=== PATIENT | male | born 1975 | race Two or more races ===

== ENCOUNTER 2024-08-04 12:47 | Outpatient (AMB) | payer OTHER, SELFPAY ==
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
[2024-08-04 13:00] VITALS: BMI 38.6
--- OUTSIDE RECORDS SUMMARY | 2024-08-04 14:23 | XMS_ITS ---
Author Name [facility] Organization Unknown History of Medication Use Medication Directions Dispensed Refills Start Date End Date Stat albuterol sulfate concentrate 2.5 mg/0.5 mL solution for nebulization 1 mL as needed by inhalation route. active Breo Ellipta 200 mcg-25 mcg/dose powder for inhalation Inhale 1 inhalation every day by inhalation route. 06/05/2024 completed albuterol sulfate HFA 90 mcg/actuation aerosol inhaler PLEASE SEE ATTACHED FOR DETAILED DIRECTIONS active oxycodone 5 mg tablet TOME BERNADINE TABLETA CADA CUATRO A SEIS HORAS POR V A ORAL 06/05/2024 completed meloxicam 15 mg tablet 1 tablet every day by oral route. active fluticasone propionate 50 mcg/actuation nasal spray,suspension USE 1 SPRAY IN EACH NOSTRIL DOS VECES AL D A active albuterol sulfate 2.5 mg/3 mL (0.083 %) solution for nebulization INHALE THE CONTENTS OF ONE VIAL BY UPDRAFT EVERY 6 HOURS IF NEEDED FOR WHEEZE, SHORTNESS OF BREATH active pregabalin 150 mg capsule TAKE 1 CAPSULE BY MOUTH TWICE A DAY MAY FILL LESSER AMOUNT active acetaminophen 500 mg tablet TOME DOS TABLETAS POR V A ORAL CADA SEIS HORAS CUANDO SEA NECESARIO FOR MILD PAIN FOR 14 DAYS active ipratropium bromide 42 mcg (0.06 %) nasal spray USE 2 SPRAYS INTO EACH NOSTRIL 4 TIMES A DAY NEEDED FOR CONGESTION active ibuprofen 800 mg tablet active Ozempic 0.25 mg or 0.5 mg (2 mg/1.5 mL) subcutaneous pen injector active montelukast 10 mg tablet 1 tablet every day by oral route. active cetirizine 10 mg tablet TOME 1 TABLETA POR V A ORAL TODOS LOS D active Paxlovid 300 mg (150 mg x 2)-100 mg tablets in a dose pack TOME SHIVANI TABLETAS POR V A ORAL DOS VECES AL D A FOR 5 DAYS, WITH OR WITHOUT FOOD 06/05/2024 completed lamotrigine 25 mg tablet 3 tablets twice a day by oral route. active prednisone 20 mg tablet TOME 3 TABLETAS POR BOCA X3 D THEN 2 TABS X3 DAYS, THEN 1 TAB X3 DAYS, WITH FOOD OR MILK 06/05/2024 completed fluticasone propionate 220 mcg/actuation HFA aerosol inhaler INHALE 2 PUFF(S) TWICE A DAY. RINSE MOUTH AFTER USE. active Trelegy Ellipta 200 mcg-62.5 mcg-25 mcg powder for inhalation INHALE UN SOPLIDO A DIARIO AT THE SAME TIME EVERY DAY active Ozempic 0.25 mg or 0.5 mg (2 mg/3 mL) subcutaneous pen injector PLEASE SEE ATTACHED FOR DETAILED DIRECTIONS active Problems Problem Status Onset Date Problem Type Date of Resoluti on Source Rupture of tendon of biceps active 2024-02-14 ProblemAct ENS_AONECT Injury of tendon of biceps brachii active 2024-02-15 ProblemAct ENS_AONECT Encounters Encounter Type Encounter Reason Primary Diagnosis Location Date Ambulatory [facility] [place] 02/15/2024 Ambulatory [facility] [place] 02/14/2024 Ambulatory [facility] [place] 02/14/2024 Ambulatory [facility] [place] 02/14/2024 Ambulatory [facility] [place] 02/13/2024 Ambulatory [facility] [place] 02/11/2024 Ambulatory [facility] [place] 02/11/2024 Ambulatory [facility] [place] 02/11/2024
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
--- OUTSIDE RECORDS SUMMARY | 2024-08-04 14:23 | XMS_ITS | Clinical Summary ---
Author Organization [facility] Location Address [address] [place] [address] Phone Care Team Providers Care Global Compensation Director Name Role Phone Edita Mancilla [employer] JUDGE Primary Care Provider Social History Tobacco Use Types Packs/Day Years Used Date Smoking Tobacco: Never Assessed Sex and Gender Information Value Date Recorded Sex Assigned at Not on file Legal Sex Male 10:45 PM EST Gender Identity Not on file Sexual Orientation Not on file Plan of Treatment Health Maintenance Due Date Last Done Comments DTaP,Tdap,and Td Vaccines (1 - Tdap) 1996 Hepatitis B Vaccines (1 of 3 - 19+ 3-dose series) 1996 Cholesterol Screening (Lipid Panel) 04/09/2022 Colorectal Cancer Screening: Colonoscopy 04/09/2022 Depression Screening 04/09/2022 HIV Screening 04/09/2022 Hepatitis C Screening 04/09/2022 Social Influencers of Health Screening 04/09/2022 COVID-19 Vaccine ( - 2023-2 5 season) 2024 Influenza Vaccine (#1) 2024 HIB Vaccines Aged Out No longer eligi ble based on patient's age to complete this topic HPV Vaccines Aged Out No longer eligi ble based on patient's age to complete this topic Hepatitis A Vaccines Aged Out No long er eligible based on patient's age to complete this topic IPV Vaccines Aged Out No longer eligi ble based on patient's age to complete this topic MMR Vaccines Aged Out No longer eligi ble based on patient's age to complete this topic Meningococcal ACWY Vaccine Aged Out N o longer eligible based on patient's age to complete this topic Meningococcal B Vacine Aged Out No lo nger eligible based on patient's age to complete this topic Pneumococcal Vaccine: Pediat rics (0 to 5 Years) and At-Risk Patients (6 to 64 Years) Aged Out No longer eligible b ased on patient's age to complete this topic RSV Immunization Patients Un brennan 20 months Aged Out No longer eligible b ased on patient's age to complete this topic Varicella Vaccines Aged Out No longer eligible based on patient's age to complete this topic Care Teams Global Compensation Director Relationship Specialty Start Date End Date Edita Mancilla NP [address] [place] [phone] PCP - General Internal Medicine 04/16/18
--- OUTSIDE RECORDS SUMMARY | 2024-08-04 14:23 | XMS_ITS | Patient Health Record ---
Author Organization [facility] Address [address] [place] [address] Care Team Providers Care Flexible Babysitter Name Role Phone Massiel, Gonzalo Primary Care Provider [phone] Reason For Referral No Information Medications Medication SIG (Take, Route, Frequency, Duration) Notes Start Date End Date Status BUSPIRONE HCL 15 MG TABLET 0 2 bid for 0 *please review for potential update for e-prescription and drug interaction check* 10/27/2014 Active CPAP 0 for 0 *please review f or potential update for e-prescription and drug interaction check* 10/27/2014 Active DULERA 200 MCG/5 MCG INHALER 200-5 MCG/ACTUATION 0 2 puffs bid for 0 *please review for potential update for e-prescription and drug interaction check* 10/27/2014 Active MONTELUKAST SOD 10 MG TABLET 0 1 qhs for 0 *please review for potential update for e-prescription and drug interaction check* 10/27/2014 Active Cyclobenzaprine HCl 10 MG 0 Oral 1 bid for 0 10/27/2014 Active Ibuprofen 200 mg 0 Oral 1 tab prn, uses 2/weeks for 0 10/27/2014 Active Lyrica 75 MG 0 Oral 1 caps bid for pain for 30 10/13/2014 Active ALBUTEROL SUL 2.5 MG/3 ML SOLN /3 ML (0.083 %) 0 Per nebulizer 3/week for 0 *please review for potential update for e-prescription and drug interaction check* 10/27/2014 Active NASACORT ALLERGY 24HR SPRAY 55 MCG 0 2 puffs qhs for 0 *please review for potential update for e-prescription and drug interaction check* 10/27/2014 Active PROAIR HFA 90 MCG INHALER MCG/ACTUATION 0 uses 6 puffs/day for 0 *please review for potential update for e-prescription and drug interaction check* 10/27/2014 Active Plan Of Treatment No Information Insurance Providers Payer Name Payer Address Payer Phone Subscriber Number Group Number Insured Name Patient Relationship to Insured Coverage Start Date Coverage End Date [place] [address] [place] [address] [id number] Elmer Vences Self - patient is the insured
== END 2024-08-04 13:37 | disposition home or self-care (01) ==
LOC: HO.HNS 12:48
PROVIDERS: Referring Provider Physical Medicine & Rehabilitation; Visit Provider Physician Assistant
DX: M48.061 Spinal stenosis, lumbar region without neurogenic claudication (principal)
CPT/HCPCS: 99204

== ENCOUNTER → 2024-08-04 12:47 | Outpatient (BNVA) | payer OTHER, SELFPAY | PROVIDERS: Referring Provider Physical Medicine & Rehabilitation; Visit Provider Physician Assistant | DX: M48.061 Spinal stenosis, lumbar region without neurogenic claudication (principal) | CPT/HCPCS: 99202 ==

== ENCOUNTER 2024-08-15 14:32 | Outpatient (AMB) | payer OTHER, SELFPAY ==
--- OUTSIDE RECORDS SUMMARY | 2024-08-15 14:49 | XMS_ITS | Data Portability ---
Author Organization [facility] Handley [facility] [place] Address [address] [facility] [address] [place] [address] Assessment Encounter Date Assessment Date Assessment LastModified [...] , [facility] eccentri c loading [facility] [address] [facility], [place], [address], 08:40:19 XR, elbow, 3 or more view 2023 [facility], [address], [place], [address], 17:26:07 Medication Orders None recorded . Patient TargetsNo targets recorded. Patient Instructions Encounter Date Encounter Id Patient Instructions Last Modified By Organization Details Last Modified Time 02/14/2024 [id number] 3 views of the right elbow ordered [...] [email or web address] [facility] Mri Department [address] [place], [address], 02/18/2024 13:22:16 Result Notes None recorded. Problems Name Problem SNOMED Code Status Onset Date Resolution Date Notes Provider Name and Address Organization Details Recorded Time Rupture of tendon of biceps 692947774 Active 024 Kaye Ross MD [address] [facility],[place] [address], [place], [address] , [place] [facility], P 4 14:24:20 Injury of tendon of biceps brachii 961143600 Active 024 Kaye Ross MD [address] [facility] [address], [place], [address] , [place] [facility], P 4 10:06:24 Problem Notes None recorded. Procedures Surgical History Date Name Laterality Status Provider Name and Address Organization Details Recorded Time BICEPS TENDON REPAIR (SURG) completed Shanita Coronado [facility] [place] 02/22/2024 11:26:42 Imaging Results Imaging Date Name Status LastModified by Organiz ation Details LastModified Time 02/15/2024 MRI, elbow, w/o contrast completed [address] Mri Department [address] [place], [address], 02/18/2024 13:22:16 Procedure Notes None recorded. Medical [...] Time Tobacco Smoking Status Former Smoker Shannon Zhu null, [place] [facility] 03/06/2024 10:14:29 How Much Tobacco Do You Smoke? No [email or web address] Information not available 03/06/2024 Sex: Unknown Functional Status None recorded. Mental Status None recorded. Family History Nothing Reported. Medical History No medical history recorded. Past Encounters Encounter ID Performer Location Encounter Start Date Encounter Closed Date Diagnosis/Indication Diagnosis SNOMED-CT Code Diagnosis ICD10 Code Diagnosis Note [id number] BENNY [facility] [address] [address] 02/14/2024 13:51:33 02/14/2024 14:44:52 Pain in elbow 03899891 M25.521 Rupture of tendon of biceps 580025022 S46.211A [id number] MD BENNY Abdalla [facility] [address] [address] 03/06/2024 10:05:42 03/06/2024 10:35:09 Rupture of tendon of biceps 871878653 S46.211A [id number] MD BENNY Abdalla [facility] [address] [address] 04/17/2024 12:51:30 04/17/2024 13:25:23 Rupture of tendon of biceps 466780281 S46.211A [id number] MD BENNY Abdalla [facility] [address] [address] 06/05/2024 12:34:26 06/05/2024 13:06:51 Rupture of tendon of biceps 113729855 S46.211A Health Concerns Section Related Observation LastModified [...] (MEDICARE REPLACEMENT/ADV ANTAGE - HMO) Elmer Mauricio [id number] Elmer Mauricio 03/06/2024 1 [employer] - DOS ON OR AFTER 2022 - ONE CARE (MEDICARE REPLACEMENT/ADV ANTAGE - HMO) Elmer Mauricio [id number] Elmer Mauricio 04/17/2024 1 [employer] - DOS ON OR AFTER 2022 - ONE CARE (MEDICARE REPLACEMENT/ADV ANTAGE - HMO) Elmer Mauricio [id number] Elmer Mauricio 06/05/2024 1 [employer] - DOS ON OR AFTER 2022 - ONE CARE (MEDICARE REPLACEMENT/ADV ANTAGE - HMO) Elmer Mauricio [id number] Elmer Mauricoi Notes Date Note Type Note Provider Name and Address Organization Details Recorded Time 02/14/2024 text/html This is a 48-yea r-old nsxbp-rxbs-vglzhvyt male who presents with a right elbow injury which occurred on 02/09/2024 when he was lifting furniture and the right arm hyperextended under a heavy piece of furniture. He thought he felt a pop. He had pain and swelling at the antecubital fossa immediately after. He had decreased range of motion and pain with activity with the right hand. He went to [facility] for evaluation, x-rays of elbow and shoulder [...] asthma, fibromyalgia, and headaches. 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 He quit smoking cigarettes 12 years ago, does not currently use tobacco or nicotine, does not use illicit drugs, does not drink alcohol. Kaye Ross MD [address] [facility],[place] [address], [place], [address], [facility] - [facility], [facility] 02/15/2024 10:04:15 03/06/2024 text/html He presents [...] any pain medication. Kaye Ross MD [address] [address], [place], [address], [facility] - [facility] 03/06/2024 16:03:07 04/17/2024 text/html He presents [...] progress thus far. Kaye Ross MD [address] [facility] [address], [place], [address], [facility] - [facility], [facility] 04/17/2024 13:58:46 06/05/2024 text/html He presents [...] Happy with his progress. Kaye Ross MD [address] [place] [address], [address], [place] [facility] 06/05/2024 13:24:21
--- OUTSIDE RECORDS SUMMARY | 2024-08-15 14:49 | XMS_ITS | Clinical Summary ---
Author Organization [facility] Location Address [address] [place] [address] Phone Care Team Providers Care Tax Compliance Manager Name Role Phone Edita Mancilla MITER OPERATOR Primary Care Provider Social History Tobacco Use [...] Influencers of Health Screening 04/09/2022 COVID-19 Vaccine (2023-2 5 season) 2024 Influenza Vaccine (Season Ended) 2025 HIB Vaccines Aged Out No longer eligi [...] age to complete this topic Meningococcal B Vaccine Aged Out No l onger eligible based on patient's age to complete [...] age to complete this topic Care Teams Tax Compliance Manager Relationship Specialty Start Date End Date Edita Mancilla NP [address] [place] [phone] PCP - General Internal Medicine 04/16/18
--- OUTSIDE RECORDS SUMMARY | 2024-08-15 14:49 | XMS_ITS | Patient Health Record ---
Author Organization [facility] Address [address] [place] [address] Care Team Providers Care Commercial Pilot Name Role Phone Massiel, Gonzalo Primary Care Provider Reason For Referral No Information Medications Medication [...] End Date [place] [address] [place] [address] [id number] Elmer Vences Self - patient is the insured
--- NOTE | 2024-08-15 15:08 | A.OFFVIS_ITS ---
Intake Visit Reasons: discuss surgery Allergies COVID-19 (SARS-CoV-2) vaccine, mohsen Allergy (Severe, Verified 08/04/24 13:02) Unknown seafood Adverse Reaction (Severe, Verified 08/04/24 13:02) Unknown Assessment & Plan Assessment & Plan (1) Lumbar stenosis: Code(s): M48.061 - Spinal stenosis, lumbar region without neurogenic claudication Category: Medical Plan Mr Dayron Mauricio came in today for an office visit to follow up and discuss potential surgery. Dr. Drew and I reviewed his films after his last visit and he agreed that a unilateral approach from the left for bilateral decompression at L4-5 would be reasonable for him. He came back in to review his MRI and to discuss the surgery. We reviewed the procedure at length with him in his . I made it clear to him that the main goal of surgery would to be to help the claudicating leg pains that are radiating down his calves, and not for his back pain which is whole separate issue altogether. He understands this. His quality of life has been suffering significantly and he is at a point now where he does not really do much in the way of any activity at all because he has in so much discomfort. He is ready to go ahead with surgery. He is tentatively booked for 09/18/2024. Pt was given risk and benefits of surgery including but not limited to infection, hematoma , nerve injury,durotomy, weakness,bowel/bladder injury, persistent pain, as well as the option to continue with conservative treatment and patient wishes to proceed with surgery. Pt is aware they should stop their motrin/meloxicam 7 days prior to surgery. All questions were answered to the best of our ability. If there is anything about this patients medical history that we have overlooked or concerns you have about us proceeding with surgery we would appreciate any input you can offer. While he understands there is very low risk for any meaningful blood loss, he is a Religion and will not take any blood products whatsoever. I will talk to Dr. Drew and see if he thinks the cell Saver will be necessary, but typically blood loss and these procedures his less than 25 cc. Total amount of time spent in this visit was 20 minutes in discussion of symptoms, lumbar imaging results and subsequent plan of care Michi Drew MD,PhD [facility] Coding Level of Care Code Est Pt Level 3 (94795) Diagnoses Lumbar stenosis M48.061
== END 2024-08-15 15:22 | disposition home or self-care (01) ==
LOC: HO.HNS 14:33
PROVIDERS: Visit Provider Physician Assistant
DX: M48.061 Spinal stenosis, lumbar region without neurogenic claudication (principal)
CPT/HCPCS: 99213

== ENCOUNTER → 2024-08-15 14:32 | Outpatient (BNVA) | payer OTHER, SELFPAY | PROVIDERS: Visit Provider Physician Assistant | DX: M48.061 Spinal stenosis, lumbar region without neurogenic claudication (principal) | CPT/HCPCS: 99212 ==

== ENCOUNTER 2024-10-16 08:13 | Day surgery (SDC) | payer OTHER, SELFPAY ==
--- OUTSIDE RECORDS SUMMARY | 2024-08-19 08:15 | XMS_ITS | Clinical Summary ---
Author Organization [facility] Location Address [address] [place] [address] Phone Care Team Providers Care Production Line Worker Name Role Phone Edita Mancilla [employer]CRET[employer] FINISHING SUPERVISOR Primary Care Provider [phone] Social History Tobacco Use Types Packs/Day Years [...] age to complete this topic Care Teams Production Line Worker Relationship Specialty Start Date End Date Edita Mancilla NP [address] [place] [phone] PCP - General Internal Medicine 04/16/18
--- OUTSIDE RECORDS SUMMARY | 2024-08-19 08:15 | XMS_ITS | Patient Health Record ---
Author Organization [facility] Address [address] [place] [address] Care Team Providers Care Dust Mill Operator Name Role Phone Massiel, Gonzalo Primary Care Provider [phone] Reason For Referral No Information Medications Medication [...] End Date [place] [address] [place] [address] [id number] Elmer Vences Self - patient is the insured
--- OUTSIDE RECORDS SUMMARY | 2024-08-19 08:16 | XMS_ITS | Data Portability ---
Author Organization [facility] Handley [facility] [place] Address [address] [facility] [address] [place] [address] Assessment Encounter Date Assessment Date Assessment LastModified [...] , [facility] eccentri c loading [facility] [address] [facility], [place], [address], 08:40:19 XR, elbow, 3 or more view 2023 [facility], [address], [place], [address], 17:26:07 Medication Orders None recorded . Patient TargetsNo targets recorded. Patient Instructions Encounter Date Encounter Id Patient Instructions Last Modified By Organization Details Last Modified Time 02/14/2024 [id number] 3 views of the right elbow ordered [...] [email or web address] [facility] Mri Department [address] [place], [address], 02/18/2024 13:22:16 Result Notes None recorded. Problems Name Problem SNOMED Code Status Onset Date Resolution Date Notes Provider Name and Address Organization Details Recorded Time Rupture of tendon of biceps 378482846 Active 024 Kaye Ross MD [address] [facility],[place] [address], [place], [address] , [place] [facility], P 4 14:24:20 Injury of tendon of biceps brachii 138116096 Active 024 Kaye Ross MD [address] [facility] [address], [place], [address] , [place] [facility], P 4 10:06:24 Problem Notes None recorded. Procedures Surgical History Date Name Laterality Status Provider Name and Address Organization Details Recorded Time BICEPS TENDON REPAIR (SURG) completed Shanita Coronado [facility] [place], [facility] 02/22/2024 11:26:42 Imaging Results Imaging Date Name Status LastModified by Organiz ation Details LastModified Time 02/15/2024 MRI, elbow, w/o contrast completed [address] Mri Department [address] [place], [address], 02/18/2024 13:22:16 Procedure Notes None recorded. Medical [...] Shannon Zhu null, [place] [facility] 03/06/2024 10:14:29 How Much Tobacco Do You Smoke? No [email or web address] Information not available 03/06/2024 Sex: Unknown Functional Status None recorded. Mental Status None recorded. Family History Nothing Reported. Medical History No medical history recorded. Past Encounters Encounter ID Performer Location Encounter Start Date Encounter Closed Date Diagnosis/Indication Diagnosis SNOMED-CT Code Diagnosis ICD10 Code Diagnosis Note [id number] BENNY [facility] [address] [address] 02/14/2024 13:51:33 02/14/2024 14:44:52 Pain in elbow 81334540 M25.521 Rupture of tendon of biceps 458026323 S46.211A [id number] MD BENNY Abdalla [facility] [address] [address] 03/06/2024 10:05:42 03/06/2024 10:35:09 Rupture of tendon of biceps 058755964 S46.211A [id number] MD BENNY Abdalla [facility] [address] [address] 04/17/2024 12:51:30 04/17/2024 13:25:23 Rupture of tendon of biceps 223825616 S46.211A [id number] MD BENNY Abdalla [facility] [address] [address] 06/05/2024 12:34:26 06/05/2024 13:06:51 Rupture of tendon of biceps 781173917 S46.211A Health Concerns Section Related Observation LastModified [...] (MEDICARE REPLACEMENT/ADV ANTAGE - HMO) Elmer Mauricio [id number] Elmer Mauricio 03/06/2024 1 [employer] - DOS ON OR AFTER 2022 - ONE CARE (MEDICARE REPLACEMENT/ADV ANTAGE - HMO) Elmer Mauricio [id number] Elmer Mauricio 04/17/2024 1 [employer] - DOS ON OR AFTER 2022 - ONE CARE (MEDICARE REPLACEMENT/ADV ANTAGE - HMO) Elmer Mauricio [id number] Elmer Mauricio 06/05/2024 1 [employer] - DOS ON OR AFTER 2022 - ONE CARE (MEDICARE REPLACEMENT/ADV ANTAGE - HMO) Elmer Mauricio [id number] Elmer Mauricio Notes Date Note Type Note Provider Name and Address Organization Details Recorded Time 02/14/2024 text/html This is a 48-yea r-old ojldh-vdbl-ilvyugvj male who presents with a right elbow injury which occurred on 02/09/2024 when he was lifting furniture and the right arm hyperextended under a heavy piece of furniture. He thought he felt a pop. He had pain and swelling at the antecubital fossa immediately after. He had decreased range of motion and pain with activity with the right hand. He went to [facility] for evaluation, x-rays of elbow and shoulder [...] asthma, fibromyalgia, and headaches. 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 He quit smoking cigarettes 12 years ago, does not currently use tobacco or nicotine, does not use illicit drugs, does not drink alcohol. Kaye Ross MD [address] [facility],[place] [address], [place], [address], [facility] - [facility] [place] 02/15/2024 10:04:15 03/06/2024 text/html He presents [...] any pain medication. Kaye Ross MD [address] [address], [place], [address], [facility] - [facility] [place], P 03/06/2024 16:03:07 04/17/2024 text/html He presents [...] progress thus far. Kaye Ross MD [address] [facility] [address], [place], [address], [facility] - [facility] [place], P 04/17/2024 13:58:46 06/05/2024 text/html He presents [...] Happy with his progress. Kaye Ross MD [address] [place] [address], [address], [place] [facility] [place] 06/05/2024 13:24:21
[2024-09-05 13:12] VITALS: BMI 38.8
[2024-09-05 13:21] VITALS: BP 151/93; PULSE 61; RESP 16; O2SAT 98
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
[2024-10-16] VITALS (11 sets, daily range): BP systolic 94–130; BP diastolic 50–77; PULSE 58–74; RESP 13–20; TEMP 36.6; O2SAT 97–99; BMI 37.5
--- NOTE | 2024-10-16 | ECG_ITS ---
Test Reason : preop Blood Pressure : */* mmHG Vent. Rate : 66 BPM Atrial Rate : 66 BPM P-R Int : 166 ms QRS Dur : 92 ms QT Int : 402 ms P-R-T Axes : 55 49 39 degrees QTcB Int : 421 ms Normal sinus rhythm Normal ECG No previous ECGs available Referred By: Tae Roblero Electronically Signed By: ROCIO RICHARD MD
--- NOTE | ~2024-10-16 | FL_ITS ---
EXAMINATION: FL GUIDANCE ONLY HISTORY: L4-5 Laminectomy Bilateral, Left sided approach COMPARISON: None available. TECHNIQUE: Fluoroscopy time: Less than 1 minute. Cumulative Dose: 2.27 mGy. DAP: 0.494 mGym2 Images: 2. FINDINGS: Fluoroscopic spot films of the lumbar spine in the lateral projection demonstrate a probe directed toward the L4-5 intervertebral disc space from a posterior approach. FL/FL guidance in OR IMPRESSION: Fluoroscopy during procedure. Please see procedure report for additional information. Electronically signed by: Juma Mercado MD 10/16/2024 12:35 PM EDT
[2024-10-16] MEDS: Lactated Ringers 1,000 ML 100 ML IVCONT (09:04)
[2024-10-16] MEDS: vancomycin HCL 1,500 MG in 0.9 % Sodium Chloride 500 ML 333.33 MG IV (09:04)
[2024-10-16] MEDS: methocarbamoL 750 MG TABLET PO (09:07)
--- NOTE | 2024-10-16 09:39 | P.HPSUR_ITS ---
Pre-Procedural Eval Section A - 24 Hr Update-Section A only Date of Service: 10/16/24 The patient is an INPATIENT: No Section B - Complete if H&P > 30 days Chief Complaint: Spinal stenosis, lumbar region without neurogenic Allergies: Allergies Allergy/AdvReac Type Severity Reaction Status Date / Time COVID-19 (SARS-CoV-2) Allergy Severe Rash Verified 09/05/24 13:03 vaccine, mohsen Penicillins Allergy Unknown Verified 09/05/24 13:04 seafood AdvReac Severe Anaphylaxis Verified 09/05/24 13:03 Review of Systems Sugical H&P ROS: Negative: Constitution, Cardiovascular, Respiratory, Neurological, Psychiatric, Hem-Onc, Allergic/Immunologic, Gastrointestinal, Genitourinary, Musculoskeletal, Integumentary, Endocrine and Eyes/Ears/Nose/Throat Exam Surgical H&P Exam: Normal: HEENT, Normal: Heart, Normal: Lungs, Normal: Extremities, Normal: Abdomen, Normal: Skin and Normal: Neurological (Wake, alert ) Plan Diagnosis/Plan: Unchanged I have reviewed the history and physical and performed a pertinent physical examination on my patient. No changes have occurred unless specified. L4-5 decompression Time Spent With Patient Time: Total time managing care of this patient today _5___ minutes.
--- NOTE | 2024-10-16 09:41 | PM.DS ---
DS: Providers Provider Date of Service: 10/16/24 <TAD Marinelli - Last Filed: 10/16/24 11:12> Date of discharge: 10/16/24 <TAD Marinelli - Last Filed: 10/16/24 11:12> Primary care physician: TAD Montaño <TAD Marinelli - Last Filed: 10/16/24 11:12> Admitting clinician: Tu Drew <TAD Marinelli - Last Filed: 10/16/24 11:12> DS: Diagnosis Discharge Diagnosis (1) Lumbar stenosis: Status: Acute <TAD Marinelli - Last Filed: 10/16/24 11:12> DS: Summary Time Attestation Discharge Coordination Time (in mins): 12 <TAD Duran - Last Filed: 10/16/24 12:35> Quality: Safe Use of Opioids Does Pt have an Active Cancer Diagnosis on the Problem List?: No <TAD Duran - Last Filed: 10/16/24 12:35> Quality: Stroke Does the patient have a stroke diagnosis?: No <TAD Duran - Last Filed: 10/16/24 12:35> Physical Exam Vital Signs: Vital Signs: Last Vital Signs Pulse 61 09/05/24 13:21 Resp 16 09/05/24 13:21 BP 151/93 H 09/05/24 13:21 Pulse Ox 98 09/05/24 13:21 O2 Del Method Room Air 09/05/24 13:21 BMI result Body Mass Index 37.5 <TAD Marinelli - Last Filed: 10/16/24 11:12> Discharge Plan Discharge Patient Disposition: Home, Self-Care <TAD Marinelli - Last Filed: 10/16/24 11:12> Referrals: Gerry Cm PA [Primary Care Provider] - 1 Week <TAD Marinelli - Last Filed: 10/16/24 11:12> Discharge Medications: New oxycodone 5 mg tablet 5 mg PO Q6H PRN (Reason: pain) Qty: 20 0RF Rx Instructions: Partial Fill upon patient request. docusate sodium [Colace] 100 mg capsule 100 mg PO BID Qty: 20 0RF Continued albuterol sulfate 2.5 mg /3 mL (0.083 %) solution for nebulization 2.5 mg inhalation Q6H PRN (Reason: Shortness Of Breath Or Wheezing) cetirizine 10 mg tablet 10 mg PO DAILY ibuprofen 800 mg tablet 800 mg PO TID meloxicam 15 mg tablet 15 mg PO DAILY PRN (Reason: Pain) acetaminophen 500 mg tablet 1,000 mg PO Q6H PRN (Reason: mild pain) montelukast 10 mg tablet 10 mg PO DAILY azelastine 137 mcg (0.1 %) spray,non-aerosol 1 spray intranasal BID albuterol sulfate 90 mcg/actuation HFA aerosol inhaler 2 puff inhalation Q4-6H PRN (Reason: Shortness Of Breath Or Wheezing) ipratropium bromide 42 mcg (0.06 %) spray,non-aerosol 2 spray intranasal QID PRN (Reason: congestion) fluticasone propionate 50 mcg/actuation spray,suspension 1 spray intranasal BID loratadine 10 mg tablet 20 mg PO DAILY pregabalin 150 mg capsule 150 mg PO BID Trelegy Ellipta 200-62.5-25 mcg blister with device 1 inh inhalation DAILY Ozempic 0.25 mg or 0.5 mg (2 mg/3 mL) pen injector SUBCUT lamotrigine 5 mg Tablet, Chewable Dispersible 30 mg PO BID <TAD Marinelli - Last Filed: 10/16/24 11:12> Discharge Orders: Discharge Order (Routine); Ordered 10/16/24 Ordered By: Ramesh Majano <TAD Marinelli - Last Filed: 10/16/24 11:12> Diet: Advance to usual diet <TAD Marinelli - Last Filed: 10/16/24 11:12> Advance to usual diet <TAD Duran - Last Filed: 10/16/24 12:35> Activity on Discharge: As tolerated <TAD Marinelli - Last Filed: 10/16/24 11:12> As tolerated <TAD Duran - Last Filed: 10/16/24 12:35> Activity Restrictions/Additional Instructions: After your spinal surgery we ask you to observe the following restrictions/guidelines: Activity: It is normal to feel some discomfort as you increase your activity, but that will improve with time. We ask you avoid heavy lifting or acitivities that cause pain. As a general rule, 8lbs is a safe limit for lifting right after surgery. Walk as much as you feel comfortable but not to exhaustion. You will feel extra tired the first few days after surgery. Stay well hydrated. It is OK to walk up and down stairs You may return to driving when you are off narcotics (such as vicodin, oxycodone, dilaudid, etc), and you are back to normal functional capacity. If you have any concerns please check with office before driving. Return to work is specific to each patient and each surgery, so please speak with your doctor/PA at first follow up. Please bring paperwork such as FMLA at that time if you need it filled out. Medications: For optimum pain control, it is best to start with a combination of 500 mg of Tylenol every 4 hours with 600 mg of Motrin every 8 hours, and use narcotics as needed in between for breakthrough pain. We will give you a short supply of narcotics after surgery (usually one weeks worth). If you need more please call the office but do not use more than prescribed. You will need to give our office 48 hours notice if you need narcotics refilled and we do not fill narcotics on weekends or evenings. If you are on a narcotic, it is a good idea to take a stool softener such as colace or senna to avoid constipation If you take blood thinner such as aspirin, Plavix, Coumadin, Effient, Eliquis etc for conditions such as Afib, DVT, Pulmonary embolus, coronary disease, stents etc please speak with your surgeon about specific details as to when you can resume these medications. You can resume NSAIDs on post op day 1 (eg: Motrin, Naproxen, etc). Follow up: Please call the office, , after surgery to arrange a 3 week follow up for wound check. Wound Care: You may remove your dressing on the first day after surgery. You may leave open to air. Please do not remove the steri strips underneath. they will fall off on their own in one week. IT IS NORMAL FOR THE WOUND TO OOZE OR BE BLOODY FOR A FEW DAYS AFTER SURGERY. IF THIS HAPPENS JUST PLACE NEW DRESSING OVER IT TO AVOID STAINING CLOTHES. You may shower on post op day # 1 We ask that you do not let the water soak the wound. If it does get wet, just towel dry lightly. Please do not scrub your incision or place any type of chemical/ointment on the wound. No tub baths, pools or jacuzzis for one month. If you have any leaking or redness from your wound, or fevers, please call office <TAD Marinelli - Last Filed: 10/16/24 11:12> Print Language: Bahamian <TAD Marinelli - Last Filed: 10/16/24 11:12>
--- NOTE | 2024-10-16 10:43 | PC.NURSE ---
Pt c/o chest pain and right sided neck pain, Dr Roblero aware, order for EKG entered at this time. Pt sts it is getting better but still present
[2024-10-16] MEDS: Acetaminophen 1,000 MG/100 ML PIGGYBACK 400 MG IV (12:00)
--- NOTE | 2024-10-16 12:30 | P.OP_ITS ---
Operative Note Operative Note Date of Service: 10/16/24 Narrative: Preoperative Diagnosis: L4-5 spinal stenosis/lateral recess stenosis/neural foraminal stenosis Operation: L4-5 Laminotomy, Partial facetectomy and foraminotomy with use of microscope Consent Informed Consent was obtained for this operation. I have explained the nature, purpose and benefits of the operation. I have discussed the risks and benefit of the operation including possible complications or adverse events with patient/family. Alternative(s) were discussed with the patient with their relative benefits and risks as well as the consequences of not accepting the operation were included in obtaining consent. Surgeon: CAROLINA SCOTT MD, PHD Procedure Assisted By: Michi Pedro Description of Procedure This patient is suffering from neurogenic claudication and back pain. MRI shows congenital spinal stenosis with bilateral lateral recess stenosis.. The patient was offered a decompression to treat his neurogenic claudication symptoms. He is aware that this surgery is not for the back pain. The procedure complications were explained. The patient was consented. The patient was brought to the operating room and endotracheally intubated. The patient was turned in prone position on the Juan Jose frame. Prep and drape was done followed by timeout. The Physician assistant boiler operator provided access. A mid lumbar incision was made followed by release of the paravertebral muscle on the left side to expose the L4-5 lamina and facet joints. An intraoperative x-ray was obtained to confirm the correct level. The microscope was brought in. I took over the procedure. The high-speed drill was used to do a L4-5 laminotomy until flavum ligament was reached. A #2 Kerrison was used to expand the laminotomy near flush to the pedicles and to include a partial facetectomy. The flavum ligament was opened and resected with a #3 Kerrison to decompress the underlying thecal sac. The flavum ligament was removed to decompress the lateral recess and the exiting L5 nerve root. The patient was turned contralaterally. The spinous process was undercut and in this way I was able to decompress the contralateral side by removing more flavum ligament. A long nerve hook could be easily passed along the medial side of the pedicles as a sign of adequate decompression. The microscope was removed. Hemostasis was done. The physician assistant boiler operator close the Incision in 2 layers. Steri-Strips were used to approximate incision. An OpSite with Tegaderm was used to cover the incision. All sponge needle counts were correct. Patient was extubated and transported in stable is to recovery room. Anesthesia: General Estimated Blood Loss (ml): 15 Complications: None Duration of Surgery: Under 60 Minutes Postoperative Plan: Discharge to home
[2024-10-16] MEDS: fentaNYL citrate/PF 100 MCG/2 ML VIAL 25 MCG IVPUSH ×2 (13:15→13:20)
== END 2024-10-16 14:53 | disposition home or self-care (01) ==
PROVIDERS: PCP Physician Assistant Medical; Visit Provider Neurological Surgery
PROC: (CPT 63047; principal; 2024-10-16 10:50)
DX: M48.062 Spinal stenosis, lumbar region with neurogenic claudication (principal); M79.7 Fibromyalgia; J45.909 Unspecified asthma, uncomplicated; J44.9 Chronic obstructive pulmonary disease, unspecified; G47.33 Obstructive sleep apnea (adult) (pediatric); Z79.1 Long term (current) use of non-steroidal anti-inflammatories (NSAID); Z79.51 Long term (current) use of inhaled steroids; Z79.85 Long-term (current) use of injectable non-insulin antidiabetic drugs; Z79.899 Other long term (current) drug therapy; Z88.0 Allergy status to penicillin; Z88.7 Allergy status to serum and vaccine; Z91.013 Allergy to seafood; Z87.891 Personal history of nicotine dependence; Z98.890 Other specified postprocedural states
CPT/HCPCS: 63047; 93005; J0131; J2003; J2250; J2704; J3010; J3371

== ENCOUNTER → 2024-10-16 08:13 | Outpatient (BNV) | payer OTHER, SELFPAY | PROVIDERS: PCP Physician Assistant Medical; Visit Provider Neurological Surgery | DX: M48.062 Spinal stenosis, lumbar region with neurogenic claudication (principal) | CPT/HCPCS: 63047 ==

== ENCOUNTER → 2024-10-16 10:46 | Outpatient (BNV) | payer OTHER, SELFPAY | PROVIDERS: PCP Physician Assistant Medical; Visit Provider Internal Medicine Cardiovascular Disease | DX: Z01.810 Encounter for preprocedural cardiovascular examination (principal) | CPT/HCPCS: 93010 ==

== ENCOUNTER 2024-11-04 12:44 | Outpatient (AMB) | payer OTHER, SELFPAY ==
--- NOTE | 2024-11-04 12:55 | A.SPINEOV_ITS ---
Intake Visit Reasons: 1st post op Intake Note: Mr. Dayron Mauricio is here today for his 1st post op visit. 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 Carlos muñiz used previously suffering from low back pain and cramping pains in his bilateral lower extremities, down toward the calves. He underwent minimally invasive L4-5 lumbar decompression to address this. He reports that overall he is doing well since his surgery, and feels much better than he did prior to surgery. He has been completing his ADLs at home without much issue. He is able to get up and down stairs without much pain. He did not take his pain medication after surgery, and states that the only medication he has been taking is Lyrica. No new neurological deficits. The patient ambulates well and rises from a seated position without difficulty. His posterior incision site is closed and well healing. I would like to follow up with Elmer again in 6 weeks for his 2nd postop visit. Ramesh Drew MD,PhD [facility] Coding Level of Care Code Global (81703) Diagnoses Lumbar stenosis M48.061
--- OUTSIDE RECORDS SUMMARY | 2024-11-04 13:37 | XMS_ITS | Patient Health Record ---
Author Organization [facility] Address [address] [place] [address] Care Team Providers Care Meal Room Hand Name Role Phone Massiel, Gonzalo Primary Care Provider [phone] Reason For Referral No Information Medications Medication [...] End Date [place] [employer] [address] [place] [address] [id number] Elmer Vences Self - patient is the insured
--- OUTSIDE RECORDS SUMMARY | 2024-11-04 13:37 | XMS_ITS | Clinical Summary ---
Author Organization [facility] Location Address [address] [place] [address] Phone Care Team Providers Care Advanced Practice Provider Name Role Phone Edita Mancilla [employer]ATIVE SERVICES PRODUCER Primary Care Provider [phone] Social History Tobacco Use Types Packs/Day Years [...] age to complete this topic Care Teams Advanced Practice Provider Relationship Specialty Start Date End Date Edita Mancilla NP [address] [place] [phone] PCP - General Internal Medicine 04/16/18
--- OUTSIDE RECORDS SUMMARY | 2024-11-04 13:38 | XMS_ITS ---
Author Name [facility] Organization Unknown History of Medication Use Medication Directions Dispensed Refills Start Date End Date Stat Breo Ellipta 200 mcg-25 mcg/dose powder for inhalation Inhale 1 inhalation every day by inhalation route. 06/05/2024 completed oxycodone 5 mg tablet TOME BERNADINE TABLETA CADA CUATRO A SEIS HORAS POR V A ORAL 06/05/2024 completed Paxlovid 300 mg (150 mg x 2)-100 mg tablets in a dose pack TOME SHIVANI TABLETAS POR V A ORAL DOS VECES AL D A FOR 5 DAYS, WITH OR WITHOUT FOOD 06/05/2024 completed prednisone 20 mg tablet TOME 3 TABLETAS POR BOCA X3 D THEN 2 TABS X3 DAYS, THEN 1 TAB X3 DAYS, WITH FOOD OR MILK 06/05/2024 completed acetaminophen 500 mg tablet TOME DOS TABLETAS POR V A ORAL CADA SEIS HORAS CUANDO SEA NECESARIO FOR MILD PAIN FOR 14 DAYS active albuterol sulfate 2.5 mg/3 mL (0.083 %) solution for nebulization INHALE THE CONTENTS OF ONE VIAL BY UPDRAFT EVERY 6 HOURS IF NEEDED FOR WHEEZE, SHORTNESS OF BREATH active albuterol sulfate concentrate 2.5 mg/0.5 mL solution for nebulization 1 mL as needed by inhalation route. active albuterol sulfate HFA 90 mcg/actuation aerosol inhaler PLEASE SEE ATTACHED FOR DETAILED DIRECTIONS active cetirizine 10 mg tablet TOME 1 TABLETA POR V A ORAL TODOS LOS D active fluticasone propionate 220 mcg/actuation HFA aerosol inhaler INHALE 2 PUFF(S) TWICE A DAY. RINSE MOUTH AFTER USE. active fluticasone propionate 50 mcg/actuation nasal spray,suspension USE 1 SPRAY IN EACH NOSTRIL DOS VECES AL D A active ibuprofen 800 mg tablet active ipratropium bromide 42 mcg (0.06 %) nasal spray USE 2 SPRAYS INTO EACH NOSTRIL 4 TIMES A DAY NEEDED FOR CONGESTION active lamotrigine 25 mg tablet 3 tablets twice a day by oral route. active meloxicam 15 mg tablet 1 tablet every day by oral route. active montelukast 10 mg tablet 1 tablet every day by oral route. active Ozempic 0.25 mg or 0.5 mg (2 mg/1.5 mL) subcutaneous pen injector active Ozempic 0.25 mg or 0.5 mg (2 mg/3 mL) subcutaneous pen injector PLEASE SEE ATTACHED FOR DETAILED DIRECTIONS active pregabalin 150 mg capsule TAKE 1 CAPSULE BY MOUTH TWICE A DAY MAY FILL LESSER AMOUNT active ProAir HFA 90 mcg/actuation aerosol inhaler 2 inhalations as needed by inhalation route. active Trelegy Ellipta 200 mcg-62.5 mcg-25 mcg powder for inhalation INHALE UN SOPLIDO A DIARIO AT THE SAME TIME EVERY DAY active Problems Problem Status Onset Date Problem Type Date of Resoluti on Source Rupture of tendon of biceps active 2024-02-14 ProblemAct [facility] Injury of tendon of biceps brachii active 2024-02-15 ProblemAct [facility] Encounters Encounter Type Encounter Reason Primary Diagnosis Location Date Ambulatory [facility] 02/15/2024 Ambulatory [facility] 02/14/2024 Ambulatory [facility] 02/14/2024 Ambulatory [facility] 02/14/2024 Ambulatory [facility] 02/13/2024 Ambulatory [facility] 02/11/2024 Ambulatory [facility] 02/11/2024 Ambulatory [facility] 02/11/2024
--- OUTSIDE RECORDS SUMMARY | 2024-11-04 13:38 | XMS_ITS | Data Portability ---
Author Organization [place] [facility] Josh Handley AONE [place] Address [address] [place] [address] Assessment Encounter Date Assessment Date Assessment LastModified [...] vs partial thicknes s distal biceps tearS TAT right biceps tendon pain, weakness , bruising , swelling , after eccentri c loading injury 2023 024 RONALDO [facility], [address], [place], [address], 08:40:19 XR, elbow, 3 or more view 2023 [facility], [address], [place], [address], 17:26:07 Medication Orders None recorded . Patient TargetsNo targets recorded. Patient Instructions Encounter Date Encounter Id Patient Instructions Last Modified By Organization Details Last Modified Time 02/14/2024 [id number] views of the right elbow ordered [...] ast No observ ation record ed. [email or web address] [facility] [address], [place], [address], 02/18/2024 13:22:16 Result Notes None recorded. Problems Name Problem SNOMED Code Status Onset Date Resolution Date Notes Provider Name and Address Organization Details Recorded Time Rupture of tendon of biceps 856253273 Active 024 Kaye Ross MD [address],[place] [address], [facility] [place], [address] , [place] [facility] 4 14:24:20 Injury of tendon of biceps brachii 889572065 Active 024 Kaye Rsos MD [address], [facility] [place], [address] , [place] [facility] 4 10:06:24 Problem Notes None recorded. Procedures Surgical History Date Name Laterality Status Provider Name and Address Organization Details Recorded Time BICEPS TENDON REPAIR (SURG) completed Shanita Coronado [place] - [facility] 02/22/2024 11:26:42 Imaging Results None recorded. Procedure Notes None recorded. Medical Equipment None [...] Time Tobacco Smoking Status Former Smoker Shannon Marko null, [place] - [facility] 03/06/2024 10:14:29 How Much Tobacco Do You Smoke? No [email or web address] Information not available 03/06/2024 Sex: Unknown Functional Status None recorded. Mental Status None recorded. Family History Nothing Reported. Medical History No medical history recorded. Past Encounters Encounter ID Performer Location Encounter Start Date Encounter Closed Date Diagnosis/Indication Diagnosis SNOMED-CT Code Diagnosis ICD10 Code Diagnosis Note [id number] MD BENNY Abdallabrian [address] [address] 02/14/2024 13:51:33 02/14/2024 14:44:52 Pain of elbow region 31187531 M25.521 Rupture of tendon of biceps 715838529 S46.211A [id number] [facility] [address] [address] 03/06/2024 10:05:42 03/06/2024 10:35:09 Rupture of tendon of biceps 306642672 S46.211A [id number] [facility] [address] [address] 04/17/2024 12:51:30 04/17/2024 13:25:23 Rupture of tendon of biceps 210269008 S46.211A [id number] MD BENNY Abdallabrian [address] [address] 06/05/2024 12:34:26 06/05/2024 13:06:51 Rupture of tendon of biceps 696817203 S46.211A Health Concerns Section Related Observation LastModified by Organization Detai ls LastModified Time None Recorded Concern Status LastModified by Organization Details LastModified Time None Recorded Advance Directives Directive None Recorded Payers Insurance Date Sequence Insurance Name Policy Number Policy Maldonado Covered Member ID Maldonado Member ID Guarantor Name 02/15/2024 1 [facility] - DOS ON OR AFTER 2022 - ONE CARE (MEDICARE REPLACEMENT/ADV ANTAGE - HMO) Elmer Mauricio [id number] Elmer Mauricio 06/02/2024 1 [facility] - DOS ON OR AFTER 2022 - ONE CARE (MEDICARE REPLACEMENT/ADV ANTAGE - HMO) Elmer Mauricio [id number] Elmer Mauricio Notes Date Note Type Note Provider Name and Address Organization Details Recorded Time 02/14/2024 text/html This is a 48-yea r-old [id number] male who presents with a right elbow injury which occurred on 02/09/2024 when he was lifting furniture and the right arm hyperextended under a heavy piece of furniture. He thought he felt a pop. He had pain and swelling at the antecubital fossa immediately after. He had decreased range of motion and pain with activity with the right hand. He went to [facility] for evaluation, x-rays of elbow and [...] asthma, fibromyalgia, and headaches. He is a [employer]. He quit smoking cigarettes 12 years ago, does not currently use tobacco or nicotine, does not use illicit drugs, does not drink alcohol. Kaye Ross MD [address] [place] [address], [address], [place] [facility] 02/15/2024 10:04:15 03/06/2024 text/html He presents [...] any pain medication. Kaye Ross MD [address],[place] [address], [place], [address], [facility] 03/06/2024 16:03:07 04/17/2024 text/html He presents [...] progress thus far. Kaye Ross MD [address],[place] [address], [place], [address], [facility] 04/17/2024 13:58:46 06/05/2024 text/html He presents [...] Happy with his progress. Kaye Ross MD [address],[place] [address], [place], [address], [facility] 06/05/2024 13:24:21
== END 2024-11-04 13:12 | disposition home or self-care (01) ==
LOC: HO.HNS 12:45
PROVIDERS: PCP Physician Assistant Medical; Visit Provider Physician Assistant
DX: M48.061 Spinal stenosis, lumbar region without neurogenic claudication (principal)
CPT/HCPCS: 99024

== ENCOUNTER → 2024-11-04 12:44 | Outpatient (BNVA) | payer OTHER, SELFPAY | PROVIDERS: PCP Physician Assistant Medical; Visit Provider Physician Assistant | DX: M48.061 Spinal stenosis, lumbar region without neurogenic claudication (principal); Z98.890 Other specified postprocedural states | CPT/HCPCS: 99212 ==